=== PATIENT | female | born 1985 | race Caucasian/White ===

== ENCOUNTER 2021-07-18 15:56 | Outpatient (CLI) | payer OTHER, SELFPAY ==
[2021-07-18 17:56] LABS: SARS-CoV-2 Ag Negative (Negative)
[2021-07-18 19:40] LABS: SARS-CoV-2 RNA PCR Negative (Negative)
== END 2021-07-18 15:57 | disposition home or self-care (01) ==
LOC: CHSLAB 16:01
PROVIDERS: PCP Emergency Medicine; Visit Provider Family Medicine
DX: Z20.822 Contact with and (suspected) exposure to COVID-19 (principal)
CPT/HCPCS: 87426; C9803; U0003; U0005

== ENCOUNTER 2021-10-13 13:23 | Outpatient (CLI) | payer OTHER, SELFPAY ==
[2021-10-13 13:34] LABS: Basophils Absolute Auto 0.06 K/mm3 (0.00-0.10); Basophils Percent Auto 0.6 % (0.0-1.0); Eosinophils Absolute Auto 0.22 K/mm3 (0.02-0.50); Eosinophils Percent Auto 2.2 % (1.0-6.0); Hematocrit 45.7 % (35.0-49.0); Hemoglobin 15.3 g/dL (12.0-15.0); Immature Granulocyte Absolute 0.12 K/mm3 (0.00-0.00); Immature Granulocyte Percent A 1.2 % (0.0-0.0); Lymphocytes Absolute Auto 3.35 K/mm3 (1.10-4.50); Lymphocytes Percent Auto 33.2 % (18.0-42.0); Mean Corpuscular HGB Conc 33.5 g/dL (32.0-36.0); Mean Corpuscular Hemoglobin 31.5 pg (27.0-31.0); Mean Platelet Volume 9.1 fl (9.2-11.8); Monocytes Absolute Auto 0.86 K/mm3 (0.10-0.90); Monocytes Percent Auto 8.5 % (2.0-11.0); Neutrophils Absolute Auto 5.5 K/mm3 (1.7-7.2); Neutrophils Percent Auto 54.3 % (50.0-70.0); Platelet Count Result 370 K/mm3 (150-420); Red Blood Count 4.86 M/mm3 (4.20-5.40); Red Cell Distribution Width 11.9 % (11.6-14.4); White Blood Count 10.1 K/mm3 (4.8-10.8)
[2021-10-13 14:12] LABS: Alanine Aminotransferase 20 U/L (14-59); Albumin Level 3.5 g/dL (3.4-5.0); Alkaline Phosphatase 80 U/L (46-116); Anion Gap 9 mmol/L (8-16); Aspartate Amino Transferase 13 U/L (15-37); Bilirubin,Total 0.4 mg/dL (0.00-1.00); Blood Urea Nitrogen 13 mg/dL (7-18); Calcium 8.9 mg/dL (8.5-10.1); Carbon Dioxide 27 mmol/L (21-32); Chloride 102 mmol/L (98-108); Estimated Glomerular Filt Rate > 60; Glucose 129 mg/dL (70-99); Osmolality Calculated 288 mOsm/kg (285-295); Sodium 138 mmol/L (136-145); Total Protein 6.5 g/dL (6.4-8.2)
== END 2021-10-13 13:24 | disposition home or self-care (01) ==
LOC: CHSLAB 13:26
PROVIDERS: PCP Family Medicine; Visit Provider Emergency Medicine
DX: D72.829 Elevated white blood cell count, unspecified (principal)
CPT/HCPCS: 36415; 80053; 85025

== ENCOUNTER 2021-10-28 14:49 | Outpatient (CLI) | payer OTHER, SELFPAY ==
[2021-10-28 16:35] LABS: SARS-CoV-2 RNA PCR Negative (Negative)
== END 2021-10-28 14:50 | disposition home or self-care (01) ==
LOC: CHSLAB 14:52
PROVIDERS: PCP Family Medicine; Visit Provider Family Medicine
DX: Z01.818 Encounter for other preprocedural examination (principal); Z20.822 Contact with and (suspected) exposure to COVID-19
CPT/HCPCS: C9803; U0003; U0005

== ENCOUNTER 2022-10-15 19:12 | Emergency (ER) | payer OTHER, SELFPAY ==
[2022-10-15 19:19] VITALS: BP 113/82; PULSE 93; RESP 14; TEMP 37; O2SAT 99
--- NOTE | 2022-10-15 19:23 | ED.UPPEXIN ---
HPI - Extremity Injury (Upper) General Chief Complaint: Extremity Injury, Upper Stated Complaint: Shoulder pain Time Seen by Provider: 10/15/22 19:15 Source: patient Mode of arrival: ambulatory Limitations: no limitations History of Present Illness HPI narrative: this is a 37-year-old female that presents with some injury to the left lateral neck and shoulder area after she was doing some heavy lifting on her own causing a strain and pain in her left upper back and neck and shoulder area there is point tenderness with some reduced range of motion in her left shoulder secondary to muscle pain. Has good range of motion in her neck with no numbness or tingling and no radiation of her pain. complaint: injury to: left Onset (ago): hour(s) Other Extremity Injury: Left: shoulder ( and upper back area on the left standard to touch) Place: home Severity: moderate Related Data Home Medications Medication Instructions Recorded Confirmed NuvaRing 120 mcg vaginal USEASDIRECTD 10/15/22 10/15/22 Allergies Allergy/AdvReac Type Severity Reaction Status Date / Time codeine AdvReac Vomiting Verified 10/15/22 19:14 Review of Systems Review of Systems: All systems reviewed & are unremarkable except as noted in HPI and below PMFSH Past Medical History Medical History Patient denies medical problems Exam Const: General: healthy appearing Nutritional Appearance: well nourished Orientation/consciousness: patient oriented x3 Limitations: no limitations Neck: Neck: normal visual inspection and no lymphadenopathy Chest: Chest palpation & inspection: normal inspection of the chest Resp: Effort & Inspection: normal respiratory effort Auscultation: clear to auscultation bilaterally Cardio: Rate: regular rate Rhythm: regular rhythm GI: GI Palp: Yes Soft to palpation Back/Spine/Pelvis: Back: no CVA tenderness Skin: General skin exam: normal color Rashes: no rashes Wounds: no wounds Neuro: General: patient oriented x3, moves all extremities and no focal motor deficits Extrem: Other: left upper back and lateral left neck and shoulder tenderness in the muscle group with palpation Psych: Mental Status: mental status grossly normal Affect: normal affect Course Course Emergency Course: after evaluation of patient pain level about a 7/10 tender in the left upper trapezius area with palpation, patient received a dose of 60mg IM Toradol and reassessment patient pain level is improved. Vital Signs Vital signs: Vital Signs Temperature 37.0 C 10/15/22 19:19 Pulse Rate 93 10/15/22 19:19 Respiratory Rate 14 10/15/22 19:19 Blood Pressure 113/82 10/15/22 19:19 Pulse Oximetry 99 10/15/22 19:19 Temperature 37.0 C 10/15/22 19:19 Pulse Rate 93 10/15/22 19:19 Respiratory Rate 14 10/15/22 19:19 Blood Pressure 113/82 10/15/22 19:19 Pulse Oximetry 99 10/15/22 19:19 Critical Care Time Critical Care Time Critical Care Time: No Discharge Plan Discharge Clinical Impression: Muscle strain Patient Disposition: Home, Self-Care Condition: Stable Instructions: Antibiotic Form, Muscle Strain (ED) Additional Instructions: advised take medicine as prescribed, can continue cold compress, and if symptoms persist or worsen should follow with primary care physician Prescriptions: New naproxen 500 mg tablet 500 mg PO BID Qty: 14 0RF cyclobenzaprine 5 mg tablet 5 mg PO TID Qty: 20 0RF No Action NuvaRing 120 mcg vaginal USEASDIRECTD Follow-up/Referrals: Chris,SAMSON Galicia [Primary Care Provider] - Time of Disposition: 19:30
[2022-10-15] MEDS: KETOROLAC (*BKC) 60 MG/2 ML VIAL IM (19:28)
== END 2022-10-15 19:42 | disposition home or self-care (01) ==
PROVIDERS: Emergency Provider Emergency Medicine; PCP Emergency Medicine
DX: S46.812A Strain of other muscles, fascia and tendons at shoulder and upper arm level, left arm, initial encounter (principal); X50.0XXA Overexertion from strenuous movement or load, initial encounter; Y92.009 Unspecified place in unspecified non-institutional (private) residence as the place of occurrence of the external cause
CPT/HCPCS: 96372; 99283; J1885

== ENCOUNTER 2023-02-07 16:40 | Emergency (ER) | payer OTHER, SELFPAY ==
--- NOTE | ~2023-02-07 | XR_ITS ---
EXAM: XR ankle RT min 3V DATE: 02/07/2023 17:23 HISTORY: FALL YESTERDAY PAIN TO DISTAL TIB/FIB SINCE . COMPARISON: None available. FINDINGS: Normal mineralization. No fracture or dislocation. No lytic or blastic lesion. Joint space s are maintained. No erosion or periosteal change. Soft tissues within normal limits. IMPRESSION: No acute osseous finding in the right ankle. Reviewed, dictated and finalized at location K.
[2023-02-07 16:40] VITALS: BP 129/83; PULSE 92; RESP 16; TEMP 37.2; O2SAT 100
--- NOTE | 2023-02-07 17:06 | ED.GENADULT ---
HPI - General Adult General Chief complaint: Extremity Injury, Lower Stated complaint: ankle injury Time Seen by Provider: 02/07/23 16:46 Source: patient History of Present Illness HPI narrative: 37-year-old female presenting with right leg pain. Patient states she has a large dog that ran into her right leg approximately 12 hours ago. She presents complaining of right leg pain. She denies any falls or any other injuries related to the incident. Onset (ago): hour(s) Location: lower extremity Related Data Home Medications Medication Instructions Recorded Confirmed NuvaRing 120 mcg vaginal USEASDIRECTD 10/15/22 02/07/23 Allergies Allergy/AdvReac Type Severity Reaction Status Date / Time codeine AdvReac Vomiting Verified 02/07/23 17:01 [facility] Past Medical History Medical History Patient denies medical problems Exam Const: General: cooperative and healthy appearing HENMT: Head: normal to inspection and normocephalic Ears: hearing grossly normal bilaterally and external ears normal Face/Nose/Sinus: Normal external nose present and Normal nares present Face and sinus: normal facial exam and face symmetric Mouth: Yes Normal oral and palatal mucosa present and Yes moist mucous membranes Eyes: General: appearance normal, both eyes and all related structures Alignment and Position: alignment normal EOM: EOMs intact bilaterally Neck: Neck: normal visual inspection and full ROM Chest: Chest palpation & inspection: normal inspection of the chest Resp: Effort & Inspection: normal respiratory effort and able to speak in complete sentences Cardio: Jugular venous distension: no JVD Rate: regular rate GI: Inspection: normal to inspection and non-distended Back/Spine/Pelvis: Cervical Spine: cervical ROM normal and No pain with cervical ROM Thoracic/Lumbar Spine: No pain with thoraco-lumbar ROM and No thoraco-lumbar ROM limited Skin: General skin exam: normal color, No abrasion and No laceration Neuro: General: patient oriented x3, moves all extremities and no focal motor deficits Extrem: General: normal to inspection and full ROM Other: Tenderness to palpation of the right medial lower leg. No palpable deformities. No appreciable swelling. Neurovascularly intact. Psych: Appearance: grossly normal Mental Status: mental status grossly normal Course Vital Signs Vital signs: Vital Signs Temperature 37.2 C 02/07/23 16:40 Pulse Rate 92 02/07/23 16:40 Respiratory Rate 16 02/07/23 16:40 Blood Pressure 129/83 02/07/23 16:40 Pulse Oximetry 100 02/07/23 16:40 Oxygen Delivery Room Air 02/07/23 16:40 Temperature 37.2 C 02/07/23 16:40 Pulse Rate 92 02/07/23 16:40 Respiratory Rate 16 02/07/23 16:40 Blood Pressure 129/83 02/07/23 16:40 Pulse Oximetry 100 02/07/23 16:40 Oxygen Delivery Room Air 02/07/23 16:40 Medical Decision Making MDM Narrative Medical decision making narrative: Differential diagnosis includes but not limited to soft tissue injury versus fracture versus dislocation. We will evaluate with imaging. Will administer IM Toradol for pain control my interpretation of imaging is without acute pathological findings. Most likely soft tissue injury. We will provide IV dose of Toradol at home. Patient appears well. She is nontoxic appearing. She was given strict return precautions and follow-up instructions. She felt safe to proceed outpatient management. Vital Signs Vital Signs: Vital Signs Temperature 37.2 C 02/07/23 16:40 Pulse Rate 92 02/07/23 16:40 Respiratory Rate 16 02/07/23 16:40 Blood Pressure 129/83 02/07/23 16:40 Pulse Oximetry 100 02/07/23 16:40 Oxygen Delivery Room Air 02/07/23 16:40 Temperature 37.2 C 02/07/23 16:40 Pulse Rate 92 02/07/23 16:40 Respiratory Rate 16 02/07/23 16:40 Blood Pressure 129/83 02/07/23 16:40 Pulse
[2023-02-07] MEDS: KETOROLAC 30 MG/ML VIAL (*BKC) IM (17:17)
[2023-02-07] MEDS: TETANUS,DIPHTHERIA,AC PERTUSSIS ADULT 0.5 ML (ADACEL) IM (17:50)
[2023-02-07 17:52] VITALS: BP 119/70; PULSE 69; RESP 16; TEMP 36.6; O2SAT 99
== END 2023-02-07 17:58 | disposition home or self-care (01) ==
PROVIDERS: Emergency Provider Emergency Medicine; PCP Emergency Medicine
DX: S89.91XA Unspecified injury of right lower leg, initial encounter (principal); Z23 Encounter for immunization; W54.1XXA Struck by dog, initial encounter
CPT/HCPCS: 73610; 90471; 90715; 96372; 99283; J1885

== ENCOUNTER 2023-07-23 00:58 | Emergency (ER) | payer OTHER, SELFPAY ==
--- NOTE | ~2023-07-23 | XR_ITS ---
Left wrist Technique: PA, oblique, lateral, and ulnar deviation views were obtained. Clinical History: Pain Findings: No acute fracture or dislocation is seen. Osseous alignment is anatomic. Joint spaces are p reserved. Soft tissues are unremarkable. Impression: Unremarkable left wrist radiographs. Reviewed, dictated and finalized at location . [employer] Impression: Unremarkable left wrist radiographs.
== END 2023-07-23 01:44 | disposition home or self-care (01) ==
LOC: CHSED 08:27
PROVIDERS: Emergency Provider Emergency Medicine
DX: M25.532 Pain in left wrist (principal); Z72.0 Tobacco use; W19.XXXA Unspecified fall, initial encounter
CPT/HCPCS: 73110; 99283

== ENCOUNTER 2023-12-03 19:02 | Emergency (ER) | payer OTHER, SELFPAY ==
[2023-12-03 19:02] VITALS: BP 135/93; PULSE 92; RESP 20; TEMP 37.1; O2SAT 100
--- NOTE | 2023-12-03 19:52 | ED.DENTAL ---
HPI - Dental/Oral General Chief complaint: Dental/Oral Stated complaint: dental pain/ facial swelling Source: patient Mode of arrival: ambulatory Limitations: no limitations History of Present Illness HPI Narrative: Patient is a 38-year-old female with left upper jaw pain with a fractured tooth. She has swelling of the left face. This all started yesterday. MD Complaint: tooth pain and tooth injury Location: Tooth # ( Sixteen) Onset (ago): day(s) (2) Duration: constant Severity: moderate Severity scale (1-10): 5 Relieving factors: nothing Exacerbating factors: chewing, cold, heat and drinking fluids Context: trauma (mechanism) ( fractured tooth 16) Associated symptoms: other ( Left cheek swelling) Treatment prior to arrival: none Related Data Home Medications Medication Instructions Recorded Confirmed NuvaRing 120 mcg vaginal USEASDIRECTD 10/15/22 12/03/23 Allergies Allergy/AdvReac Type Severity Reaction Status Date / Time codeine AdvReac Vomiting Verified 02/07/23 17:01 Review of Systems Review of Systems: All systems reviewed & are unremarkable except as noted in HPI and below Constitutional: Constitutional: Reports no additional constitutional complaints Eyes: Eyes: Reports no additional eye complaints ENT: Reports system reviewed and no additional complaints, except as documented Cardiovascular: Cardiovascular: Reports no additional cardiovascular complaints Respiratory: Respiratory: Reports no additional respiratory complaints Gastrointestinal: Gastrointestinal: Reports no additional gastrointestinal complaints Genitourinary: Genitourinary: Reports no additional female genitourinary complaints Musculoskeletal: Musculoskeletal: Reports no additional musculoskeletal complaints Integumentary/Breasts: Skin/Breast: Reports system reviewed and no additional complaints, except as docu Neurologic: Reports system reviewed and no additional complaints, except as documented Psychiatric: Psychiatric: Reports no additional psychiatric complaints Endocrine: Endocrine: Reports no additional endocrine complaints Hematologic/Lymphatic: Hematologic/Lymphatic: Reports no additional hematologic/lymphatic complaints Allergic/Immunologic: Allergic/Immunologic: Reports no additional allergic/immunologic complaints PMFSH Past Medical History Medical History Patient denies medical problems Exam Const: General: healthy appearing Nutritional Appearance: well nourished Orientation/consciousness: patient oriented x3 HENMT: Head: normal to inspection Ears: external ears normal Face/Nose/Sinus: Normal external nose present Other: tooth 16 has a partial fracture and loss of tooth with a partial filling in place; no abscess; slight swelling of the left cheek and submandibular left lymph node tender and slight swelling Eyes: Conjunctivae: conjunctivae normal Pupils: Equal, round and reactive pupils present EOM: EOMs intact bilaterally Neck: Neck: normal visual inspection Chest: Chest palpation & inspection: normal inspection of the chest Resp: Effort & Inspection: normal respiratory effort and not labored Auscultation: clear to auscultation bilaterally Cardio: Rate: regular rate Rhythm: regular rhythm Heart sounds: no murmurs GI: Inspection: non-distended GI Palp: Yes Soft to palpation and No Tenderness to palpation present (GI) Auscultation: normal bowel sounds : General: Yes bladder normal to palpation Back/Spine/Pelvis: Back: no CVA tenderness Skin: General skin exam: normal color Rashes: no rashes Wounds: no wounds Neuro: General: patient oriented x3 Cranial nerves: Yes Nystagmus not present Speech: normal speech Extrem: General: normal to inspection Psych: Mental Status: mental status grossly normal Affect: normal affect Attitude: cooperative Course Vital Signs Vital signs: Vital Signs Temperature 37.1 C
[2023-12-03] MEDS: KETOROLAC (*BKC) 60 MG/2 ML VIAL IM (20:03)
[2023-12-03] MEDS: AMOXICILLIN 500 MG CAPSULE PO (20:03)
[2023-12-03] MEDS: ONDANSETRON HCL ODT 4 MG TABLET PO (20:21)
--- NOTE | 2023-12-03 20:23 | PC.NURSE ---
patient nauseous from ketorolac injection. Patient given PO zofran to help with nausea. Patient states that pain is not any better at this time.
== END 2023-12-03 21:17 | disposition home or self-care (01) ==
LOC: CHSED 20:09
PROVIDERS: Emergency Provider Emergency Medicine; PCP Family Medicine
DX: R68.84 Jaw pain (principal); K08.89 Other specified disorders of teeth and supporting structures
CPT/HCPCS: 96372; 99283; A9270; J1885